=== PATIENT | female | born 1975 | race Caucasian/White ===

== ENCOUNTER → 2016-11-29 | Outpatient (REF) | payer BC | LOC: M LAB REF 08:50 | DX: D23.71 Other benign neoplasm of skin of right lower limb, including hip (principal) ==

== ENCOUNTER → 2019-05-28 | Outpatient (REF) | payer BC ==
[~2019-05-28] MED LIST: NASA1SPR; VITA100067 PO; VITA500T17 PO; ZYRT10CA PO
== END ==
LOC: M LAB REF 14:10
DX: L72.0 Epidermal cyst (principal)

== ENCOUNTER → 2019-07-01 | Outpatient (REF) | payer BC | LOC: M LAB REF 13:26 | DX: D23.71 Other benign neoplasm of skin of right lower limb, including hip (principal) ==

== ENCOUNTER → 2020-02-27 | Outpatient (CLI) | payer BC ==
[~2020-02-27] MED LIST changes: +GNPTAB35 PO; +MULTCAP PO
== END ==
LOC: M LABSMTC 11:24
PROVIDERS: ATTEND Anesthesiology
DX: Z01.818 Encounter for other preprocedural examination (principal); Z11.59 Encounter for screening for other viral diseases
CPT/HCPCS: C9803; U0003

== ENCOUNTER 2020-03-01 07:30 | Day surgery (SDC) | payer BC ==
[~2020-03-01] VITALS: Ht 154.9 cm; Wt 73.9 kg
[~2020-03-01 07:30] MED LIST changes: +LIDOCAINE 1% MDV 20ML VIAL SQ PRN
[2020-03-01] MEDS ORDERED: LR 1,000 ML IV ONE (08:30)
[2020-03-01] MEDS ORDERED: LIDOCAINE 2% 100MG/5ML SDV (FOR ANES.) As Ordered ONE (08:37)
[2020-03-01] MEDS ORDERED: ONDANSETRON 4MG/2ML VIAL As Ordered ONE (08:37)
[2020-03-01] MEDS ORDERED: propofoL 200 MG/20 ML VIAL As Ordered ONE (08:37)
[2020-03-01] MEDS ORDERED: dexameTHASONE 4 MG/ML 1ML VIAL (J1100 PER 1MG) As Ordered ONE (08:37)
[2020-03-01] MEDS ORDERED: fentaNYL 100 MCG/2 ML INJECTION (J3010) As Ordered ONE (08:37)
[2020-03-01] MEDS ORDERED: MIDAZOLAM INJ 2MG/2ML VIAL (J2250 PER 1MG) As Ordered ONE (08:37)
[2020-03-01] MEDS ORDERED: CIPRODEX OTIC SUSP 7.5ML As Ordered ONE (08:39)
[2020-03-01] MEDS ORDERED: OXYMETAZOLINE NASAL SPRAY (AFRIN) As Ordered ONE (09:10)
[2020-03-01] MEDS ORDERED: ONDANSETRON 4MG/2ML VIAL IV PRN (10:00)
[2020-03-01] MEDS ORDERED: LR 1,000 ML IV SCH (10:00)
[2020-03-01] MEDS ORDERED: oxyCODONE 5MG TAB PO PRN (10:00)
[2020-03-01] MEDS ORDERED: fentaNYL 100 MCG/2 ML INJECTION (J3010) IV PRN (10:00)
[2020-03-01 10:25] VITALS: BP 136/81
--- NOTE | 2020-03-07 11:20 | RO ---
DATE OF OPERATION: 03/01/2020 PREOPERATIVE DIAGNOSIS: Prolonged retention of the left tympanostomy tube. POSTOPERATIVE DIAGNOSIS: Prolonged retention of the left tympanostomy tube. PROCEDURE PERFORMED: Removal of the left tympanostomy tube and Gelfoam myringoplasty of the left tympanic membrane. SURGEON: Peter Dang MD CELLULAR PHONE REPAIRER: ANESTHESIA: General. CLINICAL PREAMBLE: This 44-year-old woman had a tympanostomy tube placed due to eustachian tube dysfunction. Her symptoms have resolved. The left tympanostomy tube has been retained for more than 18 months without evidence of extrusion. Management options, including removal of the left tympanostomy tube with left Gelfoam myringoplasty, have been discussed. The patient understood and consented to procedure. DESCRIPTION OF PROCEDURE: Patient was identified in preholding and had the left ear marked. She was brought to the operating room in stable condition. In supine position on the operating room table, patient received general anesthesia followed by placing a laryngeal mask for ventilation. she was then prepped and draped in the usual fashion for the procedure. The patient's head was turned to the right side to expose the left ear. Ear speculum was inserted and cerumen was encountered and debrided under binocular microscopy. The left tympanostomy tube was found to be in the anterior-inferior quadrant of the tympanic membrane. This was successfully extruded using alligator forceps. No granulation tissue was noted around the tympanic membrane. At this time, the decision was made to perform the left Gelfoam myringoplasty. A rim of tissue was removed around the perforation site of the left tympanic membrane. Gelfoam soaked in Ciprodex drops were placed into the left middle ear cleft. A piece of Gelfoam was then placed over the perforation site of the left tympanic membrane. Additional Gelfoam packing was the placed into the left ear canal. Ciprodex drops were instilled into the canal and then was occluded with a cotton ball. At the end of the end of the procedure, sponge and instrument counts were correct. No complications were encountered. Estimated blood loss was less than 1 mL. General anesthesia was reversed, and patient was extubated and brought to recovery room in stable condition.
== END 2020-03-01 11:05 | disposition home or self-care (01) ==
LOC: M SDC 07:30
PROVIDERS: ATTEND Otolaryngology
DX: H74.8X2 Other specified disorders of left middle ear and mastoid (principal); Z79.899 Other long term (current) drug therapy; Z88.2 Allergy status to sulfonamides; Z88.5 Allergy status to narcotic agent; Z88.1 Allergy status to other antibiotic agents; Z88.8 Allergy status to other drugs, medicaments and biological substances
CPT/HCPCS: 69610; J1100; J2250; J2405; J3010